=== PATIENT | male | born 1990 | race Caucasian/White ===

== ENCOUNTER 2018-02-23 20:22 | Emergency (ER) | payer OTHER ==
[~2018-02-23] VITALS: Ht 177.8 cm; Wt 72.6 kg
[2018-02-23] MEDS ORDERED: LISINOPRIL5 MG (20:43)
[2018-02-23 20:51] LABS: ABSOLUTE BASOPHILS 0.1 thou/uL (0.0-0.2); ABSOLUTE EOSINOPHILS 0.1 thou/uL (0.0-0.7); ABSOLUTE LYMPHOCYTES 1.6 thou/uL (0.8-5.3); ABSOLUTE MONOCYTES 0.7 thou/uL (0.0-1.2); ABSOLUTE NEUTROPHILS 6.5 thou/uL (1.6-8.1); EOSINOPHILS 0.6 %; HEMATOCRIT 41.4 % (42.0-52.0); HEMOGLOBIN 14.2 gm/dL (14.0-18.0); LYMPHOCYTES 17.4 %; MCH 29.7 pg (26.0-34.0); MCHC 34.2 g/dL (28.0-37.0); MCV 86.7 fL (80.0-100.0); MONOCYTES 8.3 %; MPV 7.3 fl. (7.2-11.1); NUCLEATED RBCS 0 /100WBC; PLATELET COUNT* 290 thou/uL (150-400); POLYS 72.7 %; RBC 4.78 mil/uL (4.50-6.00); RDW-CV 12.1 % (10.5-14.5)
[2018-02-23 20:59] LABS: ANION GAP 14 mmol/L (7-16); BUN 11 mg/dL (7-18); CALCIUM 8.8 mg/dL (8.5-10.1); CHLORIDE 91 mmol/L (98-107); CO2 22 mmol/L (21-32); GLUCOSE 135 mg/dL (70-99); SODIUM 127 mmol/L (136-145)
[2018-02-23 21:01] LABS: POTASSIUM 2.8 mmol/L (3.5-5.1)
[2018-02-23 21:02] LABS: APTT 24.8 Seconds (25.0-31.3); INR 1.1; PROTIME 11.3 Seconds (9.20-11.50)
[2018-02-23 21:18] LABS: ALBUMIN 4.5 g/dL (3.4-5.0); ALKALINE PHOSPHATASE 69 U/L (46-116); CK-MB MASS 8.3 ng/mL (<0.5-3.6); LIPASE 203 U/L (73-393); MAGNESIUM 1.6 mg/dL (1.8-2.4); NT-PRO BRAIN NAT PEPTIDE 57 pg/mL (<300); SGOT 41 U/L (15-37); SGPT 27 U/L (30-65); TOTAL BILIRUBIN 0.7 mg/dL (<0.1-1.0); TOTAL PROTEIN 7.8 g/dL (6.4-8.2); TROPONIN-I LEVEL <0.06 ng/mL (<0.06)
[2018-02-23 21:25] LABS: URINE BILIRUBIN NEGATIVE (Negative); URINE BLOOD NEGATIVE (Negative); URINE CLARITY CLEAR; URINE COLOR YELLOW; URINE GLUCOSE-RANDOM NEGATIVE (Negative); URINE KETONES NEGATIVE (Negative); URINE LEUKOCYTES-REFLEX NEGATIVE (Negative); URINE NITRITE-REFLEX NEGATIVE (Negative); URINE PROTEIN NEGATIVE (Negative); URINE SPECIFIC GRAVITY <= 1.005 (1.005-1.030); URINE UROBILINOGEN 0.2 E.U./dl (0.2-1.0)
[2018-02-23 21:35] LABS: AMP/METHAMP POSITIVE (Negative); BARBITURATES Negative (Negative); BENZODIAZEPINES Negative (Negative); COCAINE Negative (Negative); METHADONE Negative (Negative); OPIATES Negative (Negative); PCP Negative (Negative); THC Negative (Negative)
[2018-02-23] MEDS ORDERED: ATIVAN1 MG PO (22:21)
[2018-02-23] MEDS ORDERED: POTASSIUM20 PO (22:21)
[2018-02-23 22:36] VITALS: BP 130/75
--- NOTE | 2018-02-24 12:57 | EKG ---
[place] [address] ELECTROCARDIOGRAM REPORT Name: ELMO CARABALLO III Room: [facility]#: [id number] Admission: 02/23/18 Attend Phys: Discharge: 02/23/18 Date of : 86 Report #: [id number] THIS REPORT FOR: //name// [facility] ED Test Date: 2018-02-23 Test Time: 20:32:28 Pat Name: ELMO CARABALLO Department: Room: Gender: M Envelope Stuffer: FERMIN : 1990 Requested By: Nathan Johnson Order Number: [id number] MD: Brennan Duarte Measurements Intervals [place] Rate: 105 P: 10 GA: 193 QRS: 32 QRSD: 128 T: 69 QT: 355 QTc: 470 Interpretive Statements Sinus tachycardia Right bundle branch block Anteroseptal infarct, age indeterminate Compared to ECG 10/05/2005 21:54:33 Myocardial infarct finding now suggested Sinus rate has increased Electronically Signed On 02-24-2018 12:57:45 CDT by Brennan Duarte [email or web address] <ELECTRONICALLY SIGNED> By: Brennan Duarte MD, [facility] 02/24/18 1257 31 31 Brennan Duarte MD, [facility] /EPI
== END 2018-02-23 22:36 | disposition home or self-care (01) ==
LOC: M.ERS 20:22
PROVIDERS: Family Medicine
DX: F41.0 Panic disorder [episodic paroxysmal anxiety] (principal); E87.6 Hypokalemia; F15.10 Other stimulant abuse, uncomplicated; F17.210 Nicotine dependence, cigarettes, uncomplicated; Z88.2 Allergy status to sulfonamides; Z79.899 Other long term (current) drug therapy